=== PATIENT | female | born 1965 | race Caucasian/White ===

== ENCOUNTER 2017-11-01 15:52 | Emergency (ER) | payer MEDICARE, MEDICAID ==
[~2017-11-01] VITALS: Ht 165.1 cm; Wt 89.8 kg
--- NOTE | 2017-11-01 16:05 | NUR ---
[id number] FROM [facility]: S/P UNWITNESSED POSSIBLE SEIZURE. BS IN FIELD 181. A/OX 3 AT THIS TIME. BREATHING EVEN AND UNLABORED. NO SOB, NAD, VITALS STABLE. SAFETY AND COMFORT MEASURES IN PLACE. AWAITING MD ORDERS.
[2017-11-01] MEDS ORDERED: LEVETIRACETAM (250 MG) 250 MG TABLET PO ONE ×2 (16:24→16:30)
[2017-11-01] MEDS ORDERED: PHENOBARBITAL 30 MG TABLET ONE (16:24)
[2017-11-01] MEDS ORDERED: GABAPENTIN 300 MG CAPSULE ONE (16:25)
[2017-11-01] MEDS ORDERED: PHENOBARBITAL 30 MG TABLET PO ONE (16:30)
[2017-11-01] MEDS ORDERED: GABAPENTIN 100 MG CAPSULE PO ONE (16:30)
--- NOTE | 2017-11-01 16:43 | NUR ---
REPORT GIVEN TO HARI AT [facility] FOR TRANSFER BACK.
[2017-11-01] MEDS ORDERED: LORAZEPAM 1 MG TABLET ONE (17:24)
[2017-11-01] MEDS ORDERED: LORAZEPAM 0.5 MG TABLET PO ONE (17:30)
[2017-11-01 17:41] VITALS: BP 148/88
--- NOTE | 2017-11-01 17:41 | NUR ---
Patient discharged to [facility] in stable condition. Written and verbal after care instructions given. Patient verbalizes understanding of instruction.
== END 2017-11-01 17:41 ==
LOC: ER 16:00
DX: R56.9 Unspecified convulsions (principal); F03.90 Unspecified dementia, unspecified severity, without behavioral disturbance, psychotic disturbance, mood disturbance, and anxiety; F32.9 Major depressive disorder, single episode, unspecified; Z90.710 Acquired absence of both cervix and uterus; Z90.49 Acquired absence of other specified parts of digestive tract
CPT/HCPCS: A4606; Z7610

== ENCOUNTER 2017-11-21 10:22 | Emergency (ER) | payer MEDICARE, MEDICAID ==
[~2017-11-21] VITALS: Ht 165.1 cm; Wt 90.7 kg
--- NOTE | 2017-11-21 10:25 | NUR ---
BIB RA 102 FROM [facility],WITNESSED SEIZURE,BLOOD SUGAR 118. CURRENTLY A/OX 4, BREATHING EVEN AND UNLABORED. NO SOB, NAD, VITALS STABLE. NO OTHER COMPLAINTS. SAFETY AND COMFORT MEASURES IN PLACE. MD AT BEDSIDE FOR EVAL.
--- NOTE | 2017-11-21 10:35 | NUR ---
PATIENT TAKEN TO CT VIA STRETCHER.
[2017-11-21 10:37] LABS: BASOPHILS % (AUTO) 0.5 % (0.0-2.0); EOSINOPHILS % (AUTO) 3.1 % (0.0-6.0); HEMATOCRIT 38 % (33-45); HEMOGLOBIN 12.8 g/dL (11.5-14.8); LYMPHOCYTES # (AUTO) 1.4 /CMM (0.8-4.8); LYMPHOCYTES % (AUTO) 21.8 % (20.0-44.0); MEAN CORPUSCULAR HGB CONC 34 g/dl (31.0-36.0); MEAN CORPUSCULAR VOLUME 83 fL (82-100); MONOCYTES # (AUTO) 0.4 /CMM (0.1-1.30); MONOCYTES % (AUTO) 6.6 % (2.0-12.0); NEUTROPHILS # (AUTO) 4.3 /CMM (1.8-8.9); PLATELET COUNT (AUTO) 357 /CMM (150-450); RDW COEFFICIENT OF VARIATION 14.3 (11.5-15.0); RED BLOOD CELL COUNT(AUTO) 4.62 MIL/uL (4.0-5.2); WHITE BLOOD COUNT (AUTO) 6.3 K/uL (4.3-11.0)
--- NOTE | 2017-11-21 10:44 | NUR ---
PATIENT RETURNED FROM CT IN STABLE CONDITION.
[2017-11-21 10:45] LABS: CALCIUM, SERUM 8.7 mg/dL (8.5-10.1); POTASSIUM 4.6 mmol/L (3.5-5.1)
[2017-11-21 10:53] LABS: ALBUMIN 3.6 g/dL (3.4-5.0); BILIRUBIN,TOTAL 0.2 mg/dL (0.2-1.0); TOTAL PROTEIN, SERUM 7.7 g/dL (6.4-8.2)
--- NOTE | 2017-11-21 11:19 | NUR ---
called pt. for picker and packer eta 1130 trip number is: [id number]
[2017-11-21 11:50] VITALS: BP 110/75
--- NOTE | 2017-11-21 11:50 | NUR ---
REPORT GIVEN TO EMT AT BEDSIDE. PATIENT DISCHARGED BACK TO [facility] VIA AMBULANCE IN STABLE CONDITION.
== END 2017-11-21 11:50 ==
LOC: ER 10:26
DX: R56.9 Unspecified convulsions (principal); F03.90 Unspecified dementia, unspecified severity, without behavioral disturbance, psychotic disturbance, mood disturbance, and anxiety; F32.9 Major depressive disorder, single episode, unspecified; J44.9 Chronic obstructive pulmonary disease, unspecified; Z88.1 Allergy status to other antibiotic agents; Z88.5 Allergy status to narcotic agent; Z90.710 Acquired absence of both cervix and uterus; Z88.6 Allergy status to analgesic agent; Z88.8 Allergy status to other drugs, medicaments and biological substances; Z90.49 Acquired absence of other specified parts of digestive tract; Z60.2 Problems related to living alone
CPT/HCPCS: 36415; 70450-TC; 80053-TC; 85025-TC; A4606; Z7610

== ENCOUNTER 2019-04-16 20:31 | Emergency (ER) | payer MEDICARE, OTHER ==
[~2019-04-16] VITALS: Ht 162.6 cm; Wt 97.5 kg
[2019-04-16] MEDS ORDERED: LORAZEPAM INJ 2 MG/ML VIAL IV ONE (21:00)
[2019-04-16] MEDS ORDERED: LEVETIRACETAM (500MG) 1,000 MG in IV NS 0.9% 100 ML IV SCH (21:00)
[2019-04-16] MEDS ORDERED: ONDANSETRON HCL/PF - ER 4 MG/2 ML VIAL IV ONE (21:00)
[2019-04-16] MEDS ORDERED: LORAZEPAM 0.5 MG TABLET ONE (22:17)
[2019-04-16] MEDS ORDERED: LEVETIRACETAM (250 MG) 250 MG TABLET PO ONE ×2 (22:17→22:30)
[2019-04-16] MEDS ORDERED: LORAZEPAM 0.5 MG TABLET PO ONE (22:30)
[2019-04-16] MEDS ORDERED: ONDANSETRON 4 MG TAB.RAPDIS SL ONE (22:30)
--- NOTE | 2019-04-16 22:50 | NUR ---
YUMIKO HERNÁNDEZ REPORT: [phone] EXT [phone]
--- NOTE | 2019-04-16 23:01 | NUR ---
[facility] ETA:[id number]. AMBULANCE ETA 30 MINS
[2019-04-16] MEDS ORDERED: ONDANSETRON 4 MG TAB.RAPDIS ONE (23:05)
--- NOTE | 2019-04-16 23:11 | NUR ---
REPORT GIVEN TO SOHA ALLEN AT [facility]
[2019-04-16] MEDS ORDERED: IBUPROFEN 600 MG TABLET PO ONE (23:36)
[2019-04-17] VITALS: BP 122/75
--- NOTE | 2019-04-17 00:40 | NUR ---
PT LEFT VIA [facility]IVATE AMBULANCE, ---[facility] IN STABLE CONDITION, VSS, NAD NOTED. REPORT GIVEN TO STAFF.
== END 2019-04-17 00:42 ==
LOC: ER 20:38
DX: G40.909 Epilepsy, unspecified, not intractable, without status epilepticus (principal); F03.90 Unspecified dementia, unspecified severity, without behavioral disturbance, psychotic disturbance, mood disturbance, and anxiety; F32.9 Major depressive disorder, single episode, unspecified; Z90.710 Acquired absence of both cervix and uterus; Z98.890 Other specified postprocedural states; Z90.49 Acquired absence of other specified parts of digestive tract; Z88.8 Allergy status to other drugs, medicaments and biological substances; Z88.6 Allergy status to analgesic agent; Z88.1 Allergy status to other antibiotic agents; Z88.5 Allergy status to narcotic agent; Z91.048 Other nonmedicinal substance allergy status; Z60.2 Problems related to living alone
CPT/HCPCS: 70450; 99285; J1953; J2405; J7030; Q0162

== ENCOUNTER 2022-02-08 18:09 | Emergency (ER) | payer MEDICARE, OTHER ==
[~2022-02-08] VITALS: Ht 160 cm; Wt 108.0 kg
--- NOTE | 2022-02-08 18:18 | NUR ---
AUNDREA ALANIS FROM SNF FOR MEDICAL/PSYCH EVAL FOR INCREASE AGGRESSION TO STAFF. VITALS ARE WITHIN NORMAL LIMITS, NOR ISAEL DISTRESS NOTED. AWAITING MD ORDERS.
[2022-02-08] MEDS ORDERED: GLUC1KIT IM (18:41)
[2022-02-08] MEDS ORDERED: DEUT12TA PO (18:41)
[2022-02-08] MEDS ORDERED: QULIPTA PO (18:41)
[2022-02-08] MEDS ORDERED: CYCL30DR EACHEYE (18:41)
[2022-02-08] MEDS ORDERED: VALS80TA2 PO (18:41)
[2022-02-08] MEDS ORDERED: DIPH25CA51 PO (18:41)
[2022-02-08] MEDS ORDERED: CARB1TAB21 PO (18:41)
[2022-02-08] MEDS ORDERED: BISA10SU11 RC (18:41)
[2022-02-08] MEDS ORDERED: MAGN296S72 PO (18:41)
[2022-02-08] MEDS ORDERED: ATOR10TA PO (18:41)
[2022-02-08] MEDS ORDERED: GABA600T12 PO (18:41)
[2022-02-08] MEDS ORDERED: DIAZ10SP (18:41)
[2022-02-08] MEDS ORDERED: BUDE10.2 INH (18:41)
[2022-02-08] MEDS ORDERED: TRAZ-257 PO (18:41)
[2022-02-08] MEDS ORDERED: POLY15DR40 EACHEYE ×2 (18:41)
[2022-02-08] MEDS ORDERED: MAGN400O6 PO (18:41)
[2022-02-08] MEDS ORDERED: HYDR4TAB4 PO (18:41)
[2022-02-08] MEDS ORDERED: OMEP40CA21 PO (18:41)
[2022-02-08] MEDS ORDERED: DIAZ5TAB4 PO (18:41)
[2022-02-08] MEDS ORDERED: ONDA4TAB5 PO (18:41)
[2022-02-08] MEDS ORDERED: LIDO30AD10 TP (18:41)
[2022-02-08] MEDS ORDERED: MAG30ORA PO (18:41)
[2022-02-08] MEDS ORDERED: ACET-2605 PO (18:41)
[2022-02-08] MEDS ORDERED: LACO100T2 PO (18:41)
[2022-02-08] MEDS ORDERED: MULT-24 PO (18:41)
[2022-02-08] MEDS ORDERED: ALBU18HF2 IH (18:41)
[2022-02-08] MEDS ORDERED: CYCL5TAB PO (18:41)
[2022-02-08] MEDS ORDERED: INSU100V7 SQ (18:41)
[2022-02-08] MEDS ORDERED: LORA10TA7 PO (18:41)
[2022-02-08] MEDS ORDERED: ASCO-352 PO (18:41)
[2022-02-08] MEDS ORDERED: SUMA100T16 PO (18:41)
[2022-02-08] MEDS ORDERED: MAGN400T26 PO (18:41)
[2022-02-08] MEDS ORDERED: FAMO20TA8 PO (18:41)
[2022-02-08] MEDS ORDERED: ROPI0.255 PO (18:41)
[2022-02-08] MEDS ORDERED: INSU100V28 SQ (18:41)
[2022-02-08] MEDS ORDERED: POLY17PO4 PO (18:41)
[2022-02-08] MEDS ORDERED: LACT10SO3 PO (18:41)
[2022-02-08] MEDS ORDERED: DOCU-141 PO (18:41)
[2022-02-08] MEDS ORDERED: METF-441 PO (18:41)
[2022-02-08] MEDS ORDERED: DICL100G34 TP (18:41)
[2022-02-08] MEDS ORDERED: LEVE500T9 PO (18:41)
[2022-02-08] MEDS ORDERED: ACET-868 PO (18:41)
[2022-02-08] MEDS ORDERED: PSYL1PAC8 PO (18:41)
[2022-02-08] MEDS ORDERED: QUET300T2 PO (18:41)
--- NOTE | 2022-02-08 19:24 | NUR ---
covid swab collected sent to lab
[2022-02-08 19:45] VITALS: BP 135/76
--- NOTE | 2022-02-08 19:51 | NUR ---
urine collected sent to lab
--- NOTE | 2022-02-08 19:56 | NUR ---
[facility] SWAB COLLECTED AND SENT TO LAB. PATIENT'S BELONGINGS LIST DONE.
--- NOTE | 2022-02-08 20:09 | NUR ---
HIGH LIFT OPERATOR AT PT'S BEDSIDE
[2022-02-08 20:19] LABS: BASOPHILS % (AUTO) 0.5 % (0.0-2.0); EOSINOPHILS % (AUTO) 2.7 % (0.0-6.0); HEMATOCRIT 38 % (33-45); HEMOGLOBIN 12.4 g/dL (11.5-14.8); LYMPHOCYTES # (AUTO) 2.5 K/uL (0.8-4.8); LYMPHOCYTES % (AUTO) 26.2 % (20.0-44.0); MEAN CORPUSCULAR HGB CONC 33 g/dl (31.0-36.0); MEAN CORPUSCULAR VOLUME 84 fL (82-100); MONOCYTES # (AUTO) 0.8 K/uL (0.1-1.30); NEUTROPHILS % (AUTO) 62.6 % (43.0-81.0); PLATELET COUNT (AUTO) 334 K/uL (150-450); RED BLOOD CELL COUNT(AUTO) 4.51 MIL/uL (4.0-5.2); WHITE BLOOD COUNT (AUTO) 9.6 K/uL (4.3-11.0)
[2022-02-08 20:25] LABS: BILIRUBIN,URINE NEGATIVE (NEGATIVE); COLOR,URINE YELLOW (YELLOW); LEUKOCYTE ESTERASE ,URINE NEGATIVE (NEGATIVE); NITRITE, URINE NEGATIVE (NEGATIVE); PROTEIN,URINE NEGATIVE (NEGATIVE); UGLUCOSE NEGATIVE (NEGATIVE); UROBILINOGEN,URINE 0.2 EU/dL (0.2)
[2022-02-08 20:33] LABS: ALANINE AMINOTRANSFERASE 22 U/L (12-78); ALBUMIN 3.8 g/dL (3.4-5.0); ALKALINE PHOSPHATASE 176 U/L (46-116); ASPARTATE AMINOTRANSFERASE 17 U/L (15-37); BILIRUBIN,DIRECT 0.1 mg/dL (0.0-0.2); BILIRUBIN,TOTAL 0.2 mg/dL (0.2-1.0); CALCIUM, SERUM 9.2 mg/dL (8.5-10.1); CARBON DIOXIDE 32 mmol/L (21-32); CHLORIDE 99 mmol/L (98-107); GLUCOSE 119 mg/dL (74-106); POTASSIUM 3.8 mmol/L (3.5-5.1); SODIUM SERUM 138 mmol/L (136-145); TOTAL PROTEIN, SERUM 8.4 g/dL (6.4-8.2); UREA NITROGEN, BLOOD 33 mg/dL (7-18)
[2022-02-08 20:36] LABS: ACETAMINOPHEN < 0 ug/ml (10-30); ALCOHOL, BLOOD < 3 mg/dL (0-0)
--- NOTE | 2022-02-09 00:03 | NUR ---
PT ACCEPTED TO [facility] BY DR WHITE. ROOM 139-B. # FOR REPORT [phone]
--- NOTE | 2022-02-09 00:05 | NUR ---
[facility] CALLED FOR BLS TRANSPORT. ETA 90 MINUTES.
--- NOTE | 2022-02-09 00:41 | NUR ---
REPORT GIVEN TO TANMAY FRANK
--- NOTE | 2022-02-09 00:50 | NUR ---
[facility] AT BEDSIDE FOR TRANSPORT TO [facility].
== END 2022-02-09 01:00 ==
LOC: ER 18:17
DX: F03.91 Unspecified dementia, unspecified severity, with behavioral disturbance (principal); Z88.8 Allergy status to other drugs, medicaments and biological substances; Z88.6 Allergy status to analgesic agent; Z88.1 Allergy status to other antibiotic agents; Z91.041 Radiographic dye allergy status; Z20.822 Contact with and (suspected) exposure to COVID-19; Z79.899 Other long term (current) drug therapy
CPT/HCPCS: 36415; 80048-TC; 80076-TC; 85025-TC; 87081-TC; C9803; G0480

== ENCOUNTER 2022-05-20 19:18 | Inpatient (IN) | payer MEDICARE, OTHER ==
[~2022-05-20] VITALS: Ht 162.6 cm; Wt 102.1 kg
[~2022-05-20 19:18] MED LIST: ACET-2605 PO; ACET-868 PO; ALBU18HF2 IH; ASCO-352 PO; ATOR10TA PO; BISA10SU11 RC; BUDE10.2 INH; CARB1TAB21 PO; CYCL30DR EACHEYE; CYCL5TAB PO; DEUT12TA PO; DIAZ10SP; DIAZ5TAB4 PO; DICL100G34 TP; DIPH25CA51 PO; DOCU-141 PO; FAMO20TA8 PO; GABA600T12 PO; GLUC1KIT IM; HYDR4TAB4 PO; INSU100V28 SQ; INSU100V7 SQ; LACO100T2 PO; LACT10SO3 PO; LEVE500T9 PO; LIDO30AD10 TP; LORA10TA7 PO; MAG30ORA PO; MAGN296S72 PO; MAGN400O6 PO; MAGN400T26 PO; METF-441 PO; MULT-24 PO; OMEP40CA21 PO; ONDA4TAB5 PO; POLY15DR40 EACHEYE; POLY17PO4 PO; PSYL1PAC8 PO; QUET300T2 PO; QULIPTA PO; ROPI0.255 PO; SUMA100T16 PO; TRAZ-257 PO; VALS80TA2 PO
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
--- NOTE | 2022-05-20 20:09 | NUR ---
LAB AT BEDSIDE
[2022-05-20 21:00] LABS: BASOPHILS # (AUTO) 0.1 K/uL (0.0-0.2); BASOPHILS % (AUTO) 0.6 % (0.0-2.0); EOSINOPHILS % (AUTO) 3.3 % (0.0-6.0); HEMATOCRIT 34 % (33-45); HEMOGLOBIN 10.8 g/dL (11.5-14.8); LYMPHOCYTES # (AUTO) 2.8 K/uL (0.8-4.8); LYMPHOCYTES % (AUTO) 28.6 % (20.0-44.0); MEAN CORPUSCULAR HGB CONC 32 g/dl (31.0-36.0); MEAN CORPUSCULAR VOLUME 85 fL (82-100); MONOCYTES # (AUTO) 0.8 K/uL (0.1-1.30); MONOCYTES % (AUTO) 7.8 % (2.0-12.0); NEUTROPHILS # (AUTO) 5.8 K/uL (1.8-8.9); NEUTROPHILS % (AUTO) 59.7 % (43.0-81.0); RED BLOOD CELL COUNT(AUTO) 3.97 MIL/uL (4.0-5.2); WHITE BLOOD COUNT (AUTO) 9.8 K/uL (4.3-11.0)
[2022-05-20 21:20] LABS: BILIRUBIN,URINE NEGATIVE (NEGATIVE); COLOR,URINE YELLOW (YELLOW); LEUKOCYTE ESTERASE ,URINE NEGATIVE (NEGATIVE); NITRITE, URINE NEGATIVE (NEGATIVE); PH,URINE 5.5 (5.0-8.0); PROTEIN,URINE NEGATIVE (NEGATIVE); UGLUCOSE NEGATIVE (NEGATIVE); UROBILINOGEN,URINE 0.2 EU/dL (0.2)
[2022-05-20 21:24] LABS: ACETAMINOPHEN < 10 ug/ml (10-30); ALANINE AMINOTRANSFERASE 13 U/L (12-78); ALCOHOL, BLOOD < 3 mg/dL (0-0); ALKALINE PHOSPHATASE 114 U/L (46-116); ASPARTATE AMINOTRANSFERASE 15 U/L (15-37); BILIRUBIN,DIRECT 0.1 mg/dL (0.0-0.2); BILIRUBIN,TOTAL 0.1 mg/dL (0.2-1.0); CALCIUM, SERUM 9.2 mg/dL (8.5-10.1); CARBON DIOXIDE 31 mmol/L (21-32); CHLORIDE 99 mmol/L (98-107); CREATININE 0.8 mg/dL (0.6-1.3); GLUCOSE 112 mg/dL (74-106); PLATELET COUNT (AUTO) 234 K/uL (150-450); POTASSIUM 4.1 mmol/L (3.5-5.1); SODIUM SERUM 138 mmol/L (136-145); TOTAL PROTEIN, SERUM 7.5 g/dL (6.4-8.2); UREA NITROGEN, BLOOD 24 mg/dL (7-18)
--- NOTE | 2022-05-21 01:59 | NUR ---
219 BED 1
--- NOTE | 2022-05-21 02:06 | NUR ---
report given to nai kim for connie
--- NOTE | 2022-05-21 02:47 | NUR ---
PATIENT TRANSFERRED, VSS, NO ACUTE DISTRESS NOTED
[2022-05-21] MEDS ORDERED: MAGNESIUM HYDROXIDE 30 ML UDC PO PRN (03:30)
[2022-05-21] MEDS ORDERED: MAG HYDROX/AL HYDROX/SIMETH 30 ML UDC PO PRN (03:30)
[2022-05-21] MEDS ORDERED: BLOOD SUGAR DIAGNOSTIC 1 EACH STRIP IN ONE (04:00)
[2022-05-21] MEDS ORDERED: DEXT1DRO6 EACHEYE (04:30)
[2022-05-21] MEDS ORDERED: OXCA150T5 PO (04:32)
[2022-05-21] MEDS ORDERED: QUET400T PO (04:38)
[2022-05-21] MEDS ORDERED: SENN-18 PO (04:40)
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
--- NOTE | 2022-05-21 04:55 | NUR ---
RN NOTES: PER PT. STATES , I AM WEARING LEFT FOOT BRACES , BOTH HANDS BRACES / SPLINTS , HELMET ,NASAL CANULA OXYGEN THERAPY PRN , PEARL HAND NOTIFEID OF MY FINDING, PER SUPERVISIOR PT. HAD 1:1 SITTER ORDERS FOR SAFETY
[2022-05-21 05:13] VITALS: BP 128/74
--- NOTE | 2022-05-21 06:29 | NUR ---
RN NOTE: CALLED RUDI BOTELLO AND LEFT VOICE MESSAGES AT [phone], REGARDING ABOUT, PATIENT'S ADMITTED AT [facility].
[2022-05-21 08:00] VITALS: BP 127/73
[2022-05-21] MEDS ORDERED: hydrOXYzine PAMOATE 25 MG CAPSULE PO PRN (09:00)
[2022-05-21] MEDS: OXCARBAZEPINE 150 MG TABLET PO SCH (10:56)
[2022-05-21] MEDS: DIAZEPAM 5 MG TABLET PO SCH ×2 (10:56→17:04)
--- NOTE | 2022-05-21 12:10 | NUR ---
RN-NOTES RECEIVED T.O ORDER FROM DR. IBARRA OF LACTULOSE 10 GM P.O BID PRN.NOTED AND CARRIED OUT.
[2022-05-21] MEDS: LACTULOSE 10 G/15 ML UDC (PYXIS) PO PRN (13:02)
[2022-05-21 16:00] VITALS: BP 122/76
--- NOTE | 2022-05-21 18:38 | NUR ---
RN-NOTES PATIENT VISIBLE IN THE UNIT INTERACTING WITH SELECTIVE PEERS A/O X3, WHEELING SELF IN THE UNIT,ABLE TO MAKE NEEDS KNOWN AND VERBALIZE FEELINGS AND CONCERN TO THE STAFF. COMPLIANT WITH MEDICATIONS. ALL NEEDS ATTENDED AND ANTICIPATED. ON 1:1 MONITORING FOR SAFETY AND BEHAVIOR.DR. IBARRA ( SELENIUM PLANT OPERATOR) SEEN THE PATIENT AND WILL RECONCILE PATIENT'S MEDICATIONS. WILL ENDORSE TO INCOMING NURSE FOR CONTINUITY OF CARE.
--- NOTE | 2022-05-21 19:24 | NUR ---
RN NOTE NOTIFIED DR CRUZ FOR MED RECON. PT ASKING FOR MEDICATION.
[2022-05-21 20:00] VITALS: BP 140/72
--- NOTE | 2022-05-21 20:51 | NUR ---
RN NOTE MESSAGED DR CRUZ AGAIN ABOUT MEDICATION. DR. CRUZ SAID HE WAS WORKING ON IT, HOWEVER HE HAS 10 ADMITS.
[2022-05-21] MEDS: TRAZODONE 50 MG TABLET PO SCH (21:17)
[2022-05-21] MEDS: QUETIAPINE FUMARATE 100 MG TABLET PO SCH (21:17)
[2022-05-22] MEDS ORDERED: DICLOFENAC TOPICAL 100 GM GEL..GM. TP PRN
[2022-05-22] MEDS ORDERED: BISACODYL SUPP (10 MG) 10 MG/SUPP.RECT SUPP.RECT RC PRN
[2022-05-22] MEDS ORDERED: LORATADINE 10 MG TABLET PO PRN
[2022-05-22] MEDS ORDERED: DEXTROSE 50%-WATER 50 ML DISP.SYRIN IV PRN
[2022-05-22] MEDS ORDERED: diphenhydrAMINE HCL 25 MG CAPSULE PO PRN
[2022-05-22] MEDS ORDERED: ALBUTEROL SULFATE 8 GM HFA.AER.AD IH PRN
[2022-05-22] MEDS ORDERED: POLYETHYLENE GLYCOL 3350 17 GM POWD.PACK PO PRN
[2022-05-22] MEDS: CARBIDOPA/LEVODOPA 25/100 MG 1 UDTAB PO SCH ×3 (00:21→17:20)
--- NOTE | 2022-05-22 01:55 | NUR ---
RN NOTE PT COMPLAINED OF MAURICIO 03/19. JOSE. HAD TO CALL NURSING OFFICE FOR IT.
[2022-05-22] MEDS ORDERED: HYDROMORPHONE HCL 2 MG TABLET ONE (02:13)
[2022-05-22] MEDS: HYDROMORPHONE HCL 2 MG TABLET PO PRN ×3 (02:15→17:53)
[2022-05-22] MEDS: ACETAMINOPHEN 325 MG TABLET PO PRN (04:45)
[2022-05-22 07:43] LABS: BASOPHILS % (AUTO) 0.3 % (0.0-2.0); EOSINOPHILS % (AUTO) 2.1 % (0.0-6.0); HEMATOCRIT 37 % (33-45); HEMOGLOBIN 12.5 g/dL (11.5-14.8); LYMPHOCYTES # (AUTO) 1.7 K/uL (0.8-4.8); LYMPHOCYTES % (AUTO) 20.8 % (20.0-44.0); MEAN CORPUSCULAR HGB CONC 34 g/dl (31.0-36.0); MEAN CORPUSCULAR VOLUME 83 fL (82-100); MONOCYTES # (AUTO) 0.8 K/uL (0.1-1.30); MONOCYTES % (AUTO) 9.4 % (2.0-12.0); NEUTROPHILS # (AUTO) 5.5 K/uL (1.8-8.9); NEUTROPHILS % (AUTO) 67.4 % (43.0-81.0); PLATELET COUNT (AUTO) 366 K/uL (150-450); RED BLOOD CELL COUNT(AUTO) 4.47 MIL/uL (4.0-5.2); WHITE BLOOD COUNT (AUTO) 8.2 K/uL (4.3-11.0)
[2022-05-22 07:50] LABS: CREATININE 0.8 mg/dL (0.6-1.3); POTASSIUM 3.9 mmol/L (3.5-5.1)
[2022-05-22] MEDS: BLOOD SUGAR DIAGNOSTIC 1 EACH STRIP IN SCH ×4 (07:55→21:25)
[2022-05-22 08:00] VITALS: BP 120/74
[2022-05-22] MEDS: LEVETIRACETAM (250 MG) 250 MG TABLET PO SCH ×2 (08:38→17:20)
[2022-05-22] MEDS: OXCARBAZEPINE 150 MG TABLET PO SCH (08:38)
[2022-05-22] MEDS: DOCUSATE SODIUM 100 MG CAPSULE PO SCH ×2 (08:38→17:20)
[2022-05-22] MEDS: LIDOCAINE 5% (PATCH) 1 EA PATCH TP SCH (08:38)
[2022-05-22] MEDS: PSYLLIUM SEED 1 PKT PACKET PO SCH ×2 (08:38→17:20)
[2022-05-22] MEDS: MULTIVITAMINS,THERAGRAN 1 UDTAB TABLET PO SCH (08:39)
[2022-05-22] MEDS: GABAPENTIN 300 MG CAPSULE PO SCH ×3 (08:39→17:20)
[2022-05-22] MEDS: METFORMIN 850 MG TABLET PO SCH ×2 (08:39→17:20)
[2022-05-22] MEDS: CYCLOBENZAPRINE 10 MG TABLET PO SCH ×3 (08:39→17:19)
[2022-05-22] MEDS: DIAZEPAM 5 MG TABLET PO SCH ×2 (08:41→17:19)
[2022-05-22] MEDS: ASCORBIC ACID 500 MG TABLET PO SCH (08:41)
[2022-05-22] MEDS: FAMOTIDINE (20 MG) 20 MG TABLET PO SCH ×2 (08:41→17:20)
[2022-05-22] MEDS: VALSARTAN 80 MG TABLET PO SCH (08:41)
[2022-05-22] MEDS: ropiniROLE 0.5 MG TABLET PO SCH ×3 (08:43→17:22)
[2022-05-22] MEDS ORDERED: Medication Not On Formulary EA (Deutetrabenazine (Austedo) 24 MG) PO SCH (09:00)
[2022-05-22] MEDS ORDERED: Medication Not On Formulary EA (Cyclosporine (Restasis) 1 DROP) EACHEYE SCH (09:00)
[2022-05-22] MEDS: INSULIN REGULAR, HUMAN 100 UNIT/ML 3 ML VIAL SQ PRN ×2 (09:36→21:30)
[2022-05-22] MEDS: ALBUTEROL FS 2.5 MG/0.5 ML VIAL.NEB NEB PRN (10:18)
--- NOTE | 2022-05-22 11:15 | NUR ---
NURSE NOTE: PT C/O PAIN AT LEVEL 9/10 AT THIS TIME. REQUESTED DILAUDID. DILAUDID ADMINISTERED ORDERED. PT PAT WELL. WILL CONT TO MONITOR.
[2022-05-22] MEDS: LACOSAMIDE 50 MG TABLET PO SCH ×2 (11:17→21:18)
--- NOTE | 2022-05-22 12:15 | NUR ---
NURSE NOTE: PT SAYS PAIN AT 2 AT THIS TIME. DILAUDID EFFECTIVE AT THIS TIME. WILL CONT TO MONITOR.
[2022-05-22 16:00] VITALS: BP 150/85
--- NOTE | 2022-05-22 17:55 | NUR ---
NURSE NOTE: PT C/O PAIN AT LEVEL 9/10. REQUESTED DILAUDID FOR PAIN. DILAUDID PO ADMINISTERED ORDERED. PT PAT WELL. WILL CONT TO MONITOR.
--- NOTE | 2022-05-22 18:55 | NUR ---
NURSE NOTE: PAIN AT LEVEL 2 AT THIS TIME. DILAUDID EFFECTIVE. WILL CONT TO MONITOR
[2022-05-22 20:37] VITALS: BP 117/62
[2022-05-22] MEDS: TRAZODONE 50 MG TABLET PO SCH (21:19)
[2022-05-22] MEDS: ATORVASTATIN 10 MG TABLET PO SCH (21:20)
[2022-05-22] MEDS: QUETIAPINE FUMARATE 100 MG TABLET PO SCH (21:21)
[2022-05-22] MEDS: INSULIN GLARGINE, 100 UNIT/ML CARTRIDGE SQ SCH (21:27)
[2022-05-23] MEDS: HYDROMORPHONE HCL 2 MG TABLET PO PRN ×2 (05:54→12:41)
--- NOTE | 2022-05-23 05:56 | NUR ---
Pt c/o back pain 02/16. Dilaudid 2 mg po prn given as ordered. Will continue to monitor.
--- NOTE | 2022-05-23 06:59 | NUR ---
Post 1 hr dilaudid effective. MA 0/10. Will continue to monitor. Will endorse to next shift.
[2022-05-23 08:00] VITALS: BP 121/70
[2022-05-23] MEDS: CYCLOBENZAPRINE 10 MG TABLET PO SCH ×3 (09:51→17:01)
[2022-05-23] MEDS: LIDOCAINE 5% (PATCH) 1 EA PATCH TP SCH (09:51)
[2022-05-23] MEDS: GABAPENTIN 300 MG CAPSULE PO SCH ×3 (09:51→17:01)
[2022-05-23] MEDS: MULTIVITAMINS,THERAGRAN 1 UDTAB TABLET PO SCH (09:51)
[2022-05-23] MEDS: ASCORBIC ACID 500 MG TABLET PO SCH (09:51)
[2022-05-23] MEDS: PSYLLIUM SEED 1 PKT PACKET PO SCH ×2 (09:51→17:51)
[2022-05-23] MEDS: OXCARBAZEPINE 150 MG TABLET PO SCH (09:52)
[2022-05-23] MEDS: VALSARTAN 80 MG TABLET PO SCH (09:52)
[2022-05-23] MEDS: DIAZEPAM 5 MG TABLET PO SCH ×2 (09:52→17:01)
[2022-05-23] MEDS: METFORMIN 850 MG TABLET PO SCH ×2 (09:52→17:01)
[2022-05-23] MEDS: CARBIDOPA/LEVODOPA 25/100 MG 1 UDTAB PO SCH ×2 (09:52→17:01)
[2022-05-23] MEDS: LACOSAMIDE 50 MG TABLET PO SCH ×2 (09:52→21:40)
[2022-05-23] MEDS: FAMOTIDINE (20 MG) 20 MG TABLET PO SCH ×2 (09:53→17:01)
[2022-05-23] MEDS: LEVETIRACETAM (250 MG) 250 MG TABLET PO SCH ×2 (09:53→17:01)
[2022-05-23] MEDS: BLOOD SUGAR DIAGNOSTIC 1 EACH STRIP IN SCH ×4 (09:54→22:07)
[2022-05-23] MEDS: ropiniROLE 0.5 MG TABLET PO SCH ×3 (09:54→17:03)
[2022-05-23] MEDS: INSULIN REGULAR, HUMAN 100 UNIT/ML 3 ML VIAL SQ PRN ×4 (10:13→22:09)
[2022-05-23] MEDS: DOCUSATE SODIUM 100 MG CAPSULE PO SCH ×2 (10:27→17:01)
--- NOTE | 2022-05-23 10:41 | NUR ---
Social Work Note/Substance Abuse Intervention: Patient was provided with a brief substance abuse intervention and referred to [facility] ([phone]), [facility] ([phone]), and [facility] ([phone]). Pt was positive for benzodiazepine. Pt denies use of any drugs or alcohol.
--- NOTE | 2022-05-23 10:48 | NUR ---
[facility] Facility Contact: [facility] spoke with Lida from [facility] admissions ([phone]) who stated that they would have to re-route pt and cannot accept pt back.
--- NOTE | 2022-05-23 10:49 | NUR ---
LPS Conservator: SW spoke with pt's conservator Autumn ([phone]) and stated pt has a colonoscopy appointment on 05/25 and that pt has waited for this procedure. SW notified this information to the doctor.
--- NOTE | 2022-05-23 11:56 | NUR ---
LPS Conservator: SW spoke with pt's conservator Autumn ([phone]) and she is aware that pt cannot return back to [facility] and that pt is accepted at [facility], she was agreeable of this.
--- NOTE | 2022-05-23 11:56 | NUR ---
Facility Contact: SW was re-routed to [facility] and received a call from [facility] ([phone]) who stated that pt is accepted.
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
--- NOTE | 2022-05-23 13:26 | NUR ---
[facility] Initial Discharge Plan: Pt currently resides at [facility] but cannot return back. Patient will be discharged to detention facility [facility] located at [address] [place] [address]; ([phone]) and accepted by [facility]. FRANCE discussed with pt's LPS Conservator Autumn ([phone]) and is agreeable of pt going to [facility]. [facility] will work with the MD, family, and treatment team.
--- NOTE | 2022-05-23 15:15 | NUR ---
RN NOTE Patient complained of pain on her back and BLE, 8/10 on pain scale. PRN Dilaudid 2 mg PO given. Will continue to monitor.
[2022-05-23 16:00] VITALS: BP 126/69
[2022-05-23] MEDS: MENTHOL/CETYLPYRD (CEPACOL) 1 LOZ LOZENGE PO PRN (17:01)
[2022-05-23] MEDS: LACTULOSE 10 G/15 ML UDC (PYXIS) PO PRN (17:37)
--- NOTE | 2022-05-23 18:12 | NUR ---
RN NOTE Patient was reassured, oriented to place and time, encouraged to verbalize thoughts, feelings and needs with staff, importance of medication compliance, patient was invited to participate in group activities, to socialize with peers and staff, safe and therapeutic environment was provided. Patient was calm and cooperative the whole shift. Stayed in the activity room for most of the day. Will continue to monitor until change of shift.
[2022-05-23 20:00] VITALS: BP 121/68
[2022-05-23] MEDS: ALBUTEROL FS 2.5 MG/0.5 ML VIAL.NEB NEB PRN (21:03)
[2022-05-23] MEDS: QUETIAPINE FUMARATE 100 MG TABLET PO SCH (21:41)
[2022-05-23] MEDS: ATORVASTATIN 10 MG TABLET PO SCH (21:41)
[2022-05-23] MEDS: TRAZODONE 50 MG TABLET PO SCH (21:53)
[2022-05-23] MEDS: INSULIN GLARGINE, 100 UNIT/ML CARTRIDGE SQ SCH (22:11)
[2022-05-24] MEDS: HYDROMORPHONE HCL 2 MG TABLET PO PRN ×2 (04:16→11:20)
[2022-05-24] MEDS: ALBUTEROL FS 2.5 MG/0.5 ML VIAL.NEB NEB PRN (04:41)
[2022-05-24] MEDS: MENTHOL/CETYLPYRD (CEPACOL) 1 LOZ LOZENGE PO PRN (06:30)
--- NOTE | 2022-05-24 07:00 | NUR ---
RN NOTE PATIENT HAS SCHEDULED COLONOSCOPY TOMORROW 05/25/22. DIET CHANGED TO CLEAR LIQUIDS ORDERED. WILL ENDORSE TO DAY SHIFT.
[2022-05-24] MEDS: BLOOD SUGAR DIAGNOSTIC 1 EACH STRIP IN SCH ×2 (07:30→12:13)
[2022-05-24 08:03] VITALS: BP 130/80
--- NOTE | 2022-05-24 08:03 | NUR ---
SW Discharge Note: Patient will be discharged to [facility] located at [address] [place] [address]; ([phone]). Please arrange ambulance at 1PM. Chocolate Molder spoke with [facility] ([phone]) who stated patient will be accepted at facility today. Patient is alert and oriented x3 and is not able to plan for self-care at this time but is willing to accept care provided by the facility. Patient denies any suicidal or homicidal ideations. Patient is aware and agreeable with discharge plans. [facility] ([phone]) is aware and agreeable. Patient will continue to follow-up with (psychiatrist) [place] [address] [address]; ([phone]) and ([place]) Dr. Saini [address] [place] [address]; ([phone]). Patient presents with euthymic mood and congruent affect.
[2022-05-24] MEDS: OXCARBAZEPINE 150 MG TABLET PO SCH (08:06)
[2022-05-24] MEDS: DOCUSATE SODIUM 100 MG CAPSULE PO SCH (08:06)
[2022-05-24] MEDS: LACOSAMIDE 50 MG TABLET PO SCH (08:07)
[2022-05-24 08:08] VITALS: BP 130/80
[2022-05-24] MEDS: CARBIDOPA/LEVODOPA 25/100 MG 1 UDTAB PO SCH (08:08)
[2022-05-24] MEDS: VALSARTAN 80 MG TABLET PO SCH (08:08)
[2022-05-24] MEDS: FAMOTIDINE (20 MG) 20 MG TABLET PO SCH (08:08)
[2022-05-24] MEDS: DIAZEPAM 5 MG TABLET PO SCH (08:09)
[2022-05-24] MEDS: MULTIVITAMINS,THERAGRAN 1 UDTAB TABLET PO SCH (08:10)
[2022-05-24] MEDS: PSYLLIUM SEED 1 PKT PACKET PO SCH (08:10)
[2022-05-24] MEDS: LACTULOSE 10 G/15 ML UDC (PYXIS) PO PRN (08:10)
[2022-05-24] MEDS: CYCLOBENZAPRINE 10 MG TABLET PO SCH ×2 (08:10→13:29)
[2022-05-24] MEDS: GABAPENTIN 300 MG CAPSULE PO SCH ×2 (08:10→13:31)
[2022-05-24] MEDS: ropiniROLE 0.5 MG TABLET PO SCH ×2 (08:12→13:29)
[2022-05-24] MEDS: ASCORBIC ACID 500 MG TABLET PO SCH (08:13)
[2022-05-24] MEDS: LIDOCAINE 5% (PATCH) 1 EA PATCH TP SCH (08:16)
[2022-05-24] MEDS: INSULIN REGULAR, HUMAN 100 UNIT/ML 3 ML VIAL SQ PRN (08:31)
[2022-05-24] MEDS: METFORMIN 850 MG TABLET PO SCH (08:49)
[2022-05-24] MEDS: LEVETIRACETAM (250 MG) 250 MG TABLET PO SCH (08:50)
--- NOTE | 2022-05-24 09:00 | NUR ---
[facility] RN NOTE Patient was reassured, oriented to place and time, encouraged to verbalize thoughts, feelings and needs with staff, importance of medication compliance, patient was invited to participate in group activities, to socialize with peers and staff, safe and therapeutic environment was provided. Patient was calm and cooperative at this time . Stayed in the activity room for most of the day. Will continue to monitoring.
[2022-05-24] MEDS: ACETAMINOPHEN 325 MG TABLET PO PRN (09:07)
--- NOTE | 2022-05-24 10:30 | NUR ---
[facility] TANMAY NOTE C\O PAIN ON BODY DILAUDID PO GIVEN REQUESTED BY PATENT NO SOB NOTED Addendum: 05/24/22 at 1459 by CARLY FERREIRA RN BP 130/80 SATURATION 95%
--- NOTE | 2022-05-24 11:00 | NUR ---
[facility] RN NOTE PATIENT ALERT, ORIENTED SHOWER WAS DONE BY UNIFORM CAP OPERATOR , ALL NEEDS ATTENDED, MOST OF JASON STAY ON W\C IN DINNING ROOM FOR DAILY ACTIVITY , NOT IN DISTRESS AT THIS TIME
--- NOTE | 2022-05-24 13:53 | NUR ---
gps rn note per md ok to discharge called to snf report given to Mamta trimble all needs attended
--- NOTE | 2022-05-24 14:20 | NUR ---
[facility] RN NOTE PATIENT ALERT ,ORIENTED, INSTRUCTED THAT PATIENT WILL BE DISCHARGE TO SNF ,DENIES SUICIDAL IDEATION AND HOMICIDAL IDEATION, DENIES AUDITORY HALLUCINATION
--- NOTE | 2022-05-24 14:23 | NUR ---
gps rn note ambulance arrived report given went to snf with stable condition
== END 2022-05-24 14:30 | DRG 885 ==
LOC: ER 19:35 → GPS 05-21 02:10
PROVIDERS: ADMIT Psychiatry & Neurology Psychiatry; ATTEND Internal Medicine
DX: F25.0 Schizoaffective disorder, bipolar type (principal); F03.92 Unspecified dementia, unspecified severity, with psychotic disturbance; E11.9 Type 2 diabetes mellitus without complications; R26.9 Unspecified abnormalities of gait and mobility; J44.9 Chronic obstructive pulmonary disease, unspecified; I10 Essential (primary) hypertension; K21.9 Gastro-esophageal reflux disease without esophagitis; Z90.710 Acquired absence of both cervix and uterus; Z99.3 Dependence on wheelchair; Z90.49 Acquired absence of other specified parts of digestive tract; Z98.890 Other specified postprocedural states; Z88.1 Allergy status to other antibiotic agents; Z88.3 Allergy status to other anti-infective agents; Z91.041 Radiographic dye allergy status; Z88.5 Allergy status to narcotic agent; Z88.8 Allergy status to other drugs, medicaments and biological substances; Z91.018 Allergy to other foods; Z91.048 Other nonmedicinal substance allergy status; Z79.51 Long term (current) use of inhaled steroids; Z79.4 Long term (current) use of insulin; Z79.84 Long term (current) use of oral hypoglycemic drugs; Z79.899 Other long term (current) drug therapy; Z20.822 Contact with and (suspected) exposure to COVID-19
CPT/HCPCS: 36415; 80048-TC; 80061-TC; 80076-TC; 82962-TC; 85025-TC; 94799-TC; C9803; G0480; J1815